=== PATIENT | female | born 1960 | race Asian ===

== ENCOUNTER 2017-05-18 08:12 | Outpatient (CLI) | payer BC | END 2017-05-18 09:15 | disposition home or self-care (01) | LOC: RAD 08:12 | DX: R07.89 Other chest pain (principal) ==

== ENCOUNTER 2018-05-09 13:41 | Emergency (ER) | payer BC ==
[~2018-05-09] VITALS: Ht 162.6 cm; Wt 95.3 kg
[2018-05-09 13:49] VITALS: TEMP 97.9
[2018-05-09 15:18] LABS: PLATELET COUNT 212 K/uL (152-353)
[2018-05-09 15:49] LABS: POTASSIUM 3.5 mmol/L (3.6-5.2)
[2018-05-09 16:19] VITALS: BP 132/88
== END 2018-05-09 16:19 | disposition home or self-care (01) ==
LOC: ED 13:41
PROVIDERS: Emergency Medicine
DX: S39.012A Strain of muscle, fascia and tendon of lower back, initial encounter (principal)
CPT/HCPCS: 36415; 80053; 81000; 85007; 85027; 96372; 99283; J1885

== ENCOUNTER 2018-05-30 15:12 | Outpatient (CLI) | payer BC | END 2018-05-30 19:54 | disposition home or self-care (01) | LOC: MAMMO 15:12 | DX: Z12.31 Encounter for screening mammogram for malignant neoplasm of breast (principal) ==

== ENCOUNTER 2018-12-13 10:09 | Outpatient (CLI) | payer BC | END 2018-12-13 19:17 | disposition home or self-care (01) | LOC: LABW 10:09 | DX: I27.21 Secondary pulmonary arterial hypertension (principal) | CPT/HCPCS: 36415; 83880; 86038 ==

== ENCOUNTER 2019-03-01 12:34 | Outpatient (CLI) | payer BC | END 2019-03-01 23:59 | LOC: RESP 12:34 | DX: I27.21 Secondary pulmonary arterial hypertension (principal) | CPT/HCPCS: 93306 ==

== ENCOUNTER 2019-06-05 11:45 | Outpatient (CLI) | payer BC | END 2019-06-05 19:27 | disposition home or self-care (01) | LOC: MAMMO 11:45 | DX: Z12.31 Encounter for screening mammogram for malignant neoplasm of breast (principal) ==

== ENCOUNTER 2020-02-28 09:59 | Outpatient (CLI) | payer OTHER | END 2020-02-28 21:27 | disposition home or self-care (01) | LOC: RAD 09:59 | DX: M19.90 Unspecified osteoarthritis, unspecified site (principal); M54.9 Dorsalgia, unspecified; I10 Essential (primary) hypertension; J98.4 Other disorders of lung ==

== ENCOUNTER 2020-03-29 08:33 | Outpatient (CLI) | payer BC | END 2020-03-29 23:25 | disposition home or self-care (01) | LOC: LABW 08:33 | DX: R10.9 Unspecified abdominal pain (principal); R06.09 Other forms of dyspnea | CPT/HCPCS: 36415; 83880; 86318 ==

== ENCOUNTER 2020-06-10 08:33 | Outpatient (CLI) | payer BC | END 2020-06-10 22:06 | disposition home or self-care (01) | LOC: MAMMO 08:33 | PROVIDERS: ATTEND Internal Medicine | DX: Z12.31 Encounter for screening mammogram for malignant neoplasm of breast (principal) ==

== ENCOUNTER 2020-09-04 21:28 | Emergency (ER) | payer BC ==
[~2020-09-04] VITALS: Ht 162.6 cm; Wt 95.3 kg
[2020-09-04 22:23] LABS: PLATELET COUNT 297 K/uL (152-353)
[2020-09-04 22:34] LABS: POTASSIUM 3.5 mmol/L (3.6-5.2); SODIUM 140 mmol/L (136-145)
[2020-09-04 22:42] LABS: PARTIAL THROMBOPLASTIN TIME 25.4 SECONDS (24.5-33.6)
[2020-09-05 02:00] VITALS: BP 119/71; TEMP 98.8
== END 2020-09-05 02:00 | disposition short-term general hospital (02) ==
LOC: ED 21:33
PROVIDERS: Emergency Medicine
DX: G45.8 Other transient cerebral ischemic attacks and related syndromes (principal); R41.82 Altered mental status, unspecified; R53.1 Weakness; Z03.818 Encounter for observation for suspected exposure to other biological agents ruled out
CPT/HCPCS: 36415; 80053; 80307; 81000; 82948; 83880; 84484; 85027; 85610; 85730; 87635; 93005; 99285; U0003

== ENCOUNTER 2021-02-23 12:48 | Emergency (ER) | payer BC ==
[~2021-02-23] VITALS: Ht 162.6 cm; Wt 95.3 kg
[2021-02-23 13:04] VITALS: TEMP 97.4
[2021-02-23 14:01] LABS: PLATELET COUNT 309 K/uL (152-353)
[2021-02-23 14:06] LABS: POTASSIUM 3.2 mmol/L (3.6-5.2); SODIUM 142 mmol/L (136-145)
[2021-02-23 14:20] LABS: PARTIAL THROMBOPLASTIN TIME 26.5 SECONDS (24.5-33.6)
[2021-02-23 15:45] VITALS: BP 91/61
== END 2021-02-23 15:45 | disposition home or self-care (01) ==
LOC: ED 12:55
PROVIDERS: Hospitalist
DX: R55 Syncope and collapse (principal)
CPT/HCPCS: 36415; 80053; 80307; 80320; 81000; 82550; 82553; 83880; 84484; 85027; 85610; 85730; 93005; 99283

== ENCOUNTER 2023-08-24 15:13 | Outpatient (CLI) | payer OTHER ==
[2023-08-24 15:53] LABS: PLATELET COUNT 339 K/uL (152-353)
[2023-08-24 16:00] LABS: PARTIAL THROMBOPLASTIN TIME 30.1 SECONDS (23.9-36.7)
[2023-08-24 16:14] LABS: POTASSIUM 3.5 mmol/L (3.6-5.2)
== END 2023-08-24 19:10 | disposition home or self-care (01) ==
LOC: LABW 15:13
PROVIDERS: ATTEND Podiatrist
DX: Z01.810 Encounter for preprocedural cardiovascular examination (principal); Z01.811 Encounter for preprocedural respiratory examination; Z01.812 Encounter for preprocedural laboratory examination; Z86.73 Personal history of transient ischemic attack (TIA), and cerebral infarction without residual deficits
CPT/HCPCS: 36415; 80053; 85027; 85610; 85660; 85730; 93005